=== PATIENT | female | born 1985 | race Asian ===

== ENCOUNTER 2017-07-16 14:07 | Observation (INO) | payer OTHER ==
[~2017-07-16] VITALS: Ht 170.2 cm; Wt 64.1 kg
[2017-07-16 18:27] VITALS: BP 104/65; TEMP 98; Ht 170.2 cm; Wt 64.1 kg
[2017-07-16 19:12] LABS: PLATELET COUNT 180 K/uL (152-353)
[2017-07-16 19:24] LABS: POTASSIUM 3.5 mmol/L (3.6-5.2); SODIUM 137 mmol/L (136-145)
[2017-07-16 20:00] VITALS: BP 116/65; TEMP 98.3
[2017-07-17] VITALS: BP 114/63; TEMP 98.6
[2017-07-17 04:00] VITALS: BP 108/50; TEMP 98.5
[2017-07-17 05:43] LABS: PLATELET COUNT 147 K/uL (152-353)
[2017-07-17 06:04] LABS: POTASSIUM 3.6 mmol/L (3.6-5.2); SODIUM 141 mmol/L (136-145)
[2017-07-17 08:00] VITALS: BP 102/65; TEMP 98.3
[2017-07-17 11:53] VITALS: BP 97/63; TEMP 98.2
[2017-07-17 20:29] VITALS: BP 116/71; TEMP 98.4
[2017-07-18] VITALS: BP 107/65; TEMP 98.4
[2017-07-18 04:00] VITALS: BP 97/52; TEMP 99.1
[2017-07-18 05:18] LABS: PLATELET COUNT 163 K/uL (152-353)
[2017-07-18 05:54] LABS: POTASSIUM 3.8 mmol/L (3.6-5.2); SODIUM 138 mmol/L (136-145)
[2017-07-18 08:00] VITALS: BP 99/54; TEMP 98.7
[2017-07-18 12:00] VITALS: BP 98/54; TEMP 98.7
[2017-07-18 16:00] VITALS: BP 101/64; TEMP 98.4
[2017-07-18 20:00] VITALS: BP 116/62; TEMP 98.7
== END 2017-07-18 22:40 | disposition home or self-care (01) ==
LOC: CT 14:07 → MED/SURG 17:31
PROVIDERS: ADMIT Family Medicine
PROC: 0UPD4HZ Removal of Contraceptive Device from Uterus and Cervix, Percutaneous Endoscopic Approach (ICD-10-PCS; principal; 2017-07-17)
DX: T83.32XA Displacement of intrauterine contraceptive device, initial encounter (principal); K59.09 Other constipation; R10.11 Right upper quadrant pain; R10.13 Epigastric pain; R10.32 Left lower quadrant pain; N83.299 Other ovarian cyst, unspecified side; R87.610 Atypical squamous cells of undetermined significance on cytologic smear of cervix (ASC-US)
CPT/HCPCS: 36415; 80053; 81000; 83605; 83735; 84702; 85027; 87040; 87490; 87590; 96365; 96366; 96367; 96374; 96375; 99220; G0378; G0379; J0132; J1170; J1885; J2175; J2543; J2765; J3010; J3490; Q9963; S0028

== ENCOUNTER 2018-05-30 10:47 | Emergency (ER) | payer OTHER ==
[~2018-05-30] VITALS: Ht 170.2 cm; Wt 70.3 kg
[2018-05-30 11:07] VITALS: TEMP 98.1
[2018-05-30 14:50] VITALS: BP 112/68
== END 2018-05-30 14:50 | disposition home or self-care (01) ==
LOC: EDBD 10:47 → ED 10:47
DX: G43.909 Migraine, unspecified, not intractable, without status migrainosus (principal)
CPT/HCPCS: 96372; 99283; J2175

== ENCOUNTER 2019-04-08 11:47 | Outpatient (CLI) | payer OTHER ==
[2019-04-08 12:32] LABS: POTASSIUM 3.9 mmol/L (3.6-5.2)
== END 2019-04-08 23:54 | disposition home or self-care (01) ==
LOC: RAD 11:47
PROVIDERS: Nurse Practitioner Family
DX: R05 Cough (principal); J20.8 Acute bronchitis due to other specified organisms
CPT/HCPCS: 36415; 80053; 85379

== ENCOUNTER 2019-04-09 10:15 | Outpatient (CLI) | payer OTHER | END 2019-04-09 23:44 | disposition home or self-care (01) | LOC: RAD 10:15 → CT 10:15 | DX: R79.1 Abnormal coagulation profile (principal) | CPT/HCPCS: Q9963 ==

== ENCOUNTER 2019-07-04 16:33 | Emergency (ER) | payer OTHER ==
[~2019-07-04] VITALS: Ht 170.2 cm; Wt 70.3 kg
[2019-07-04 17:39] LABS: PLATELET COUNT 188 K/uL (152-353)
[2019-07-04 17:48] LABS: POTASSIUM 3.7 mmol/L (3.6-5.2); SODIUM 145 mmol/L (136-145)
[2019-07-04 19:44] LABS: PARTIAL THROMBOPLASTIN TIME 20.6 SECONDS (24.5-33.6)
[2019-07-04 20:50] VITALS: BP 133/76; TEMP 98.9
== END 2019-07-04 20:50 | disposition home or self-care (01) ==
LOC: ED 16:33
PROVIDERS: Hospitalist
DX: J40 Bronchitis, not specified as acute or chronic (principal)
CPT/HCPCS: 36415; 36600; 80053; 80307; 80320; 81000; 81025; 82550; 82553; 82805; 83605; 83880; 84484; 85027; 85379; 85610; 85730; 87040; 93005; 94664; 96360; 96361; 96375; 99284; J1885; J2405; J2930; Q9963

== ENCOUNTER 2019-09-13 08:27 | Outpatient (CLI) | payer OTHER | END 2019-09-13 19:13 | disposition home or self-care (01) | LOC: CT 08:27 | DX: J42 Unspecified chronic bronchitis (principal) | CPT/HCPCS: Q9963 ==

== ENCOUNTER 2019-10-14 19:06 | Outpatient (CLI) | payer OTHER | END 2019-10-14 19:41 | disposition home or self-care (01) | LOC: LAB 19:06 | DX: R00.2 Palpitations (principal) | CPT/HCPCS: 82550; 84484 ==

== ENCOUNTER 2019-12-07 17:29 | Outpatient (CLI) | payer OTHER | END 2019-12-07 19:10 | disposition home or self-care (01) | LOC: LAB 17:29 | DX: R00.2 Palpitations (principal) | CPT/HCPCS: 82550; 83880; 84484; 85379 ==

== ENCOUNTER 2020-08-07 11:28 | Outpatient (CLI) | payer OTHER | END 2020-08-07 19:45 | disposition home or self-care (01) | LOC: US 11:28 | PROVIDERS: ATTEND Nurse Practitioner Family | DX: N93.9 Abnormal uterine and vaginal bleeding, unspecified (principal) ==

== ENCOUNTER 2021-02-06 17:27 | Outpatient (CLI) | payer OTHER | END 2021-02-06 22:47 | disposition home or self-care (01) | LOC: RAD 17:27 | PROVIDERS: ATTEND Nurse Practitioner Family | DX: R07.89 Other chest pain (principal) ==

== ENCOUNTER 2021-02-08 15:40 | Outpatient (CLI) | payer OTHER ==
[2021-02-08 16:20] LABS: POTASSIUM 3.5 mmol/L (3.6-5.2); SODIUM 141 mmol/L (136-145)
== END 2021-02-08 22:52 | disposition home or self-care (01) ==
LOC: LABW 15:40
PROVIDERS: ATTEND Nurse Practitioner Family
DX: R07.89 Other chest pain (principal); M54.6 Pain in thoracic spine
CPT/HCPCS: 36415; 80053; 82150; 82550; 82553; 83690; 84484; 85379

== ENCOUNTER 2021-02-08 17:13 | Observation (INO) | payer OTHER ==
[~2021-02-08] VITALS: Ht 170.2 cm; Wt 73.6 kg
[2021-02-08 17:20] VITALS: BP 118/71; TEMP 99.1
[2021-02-08 17:52] LABS: PLATELET COUNT 191 K/uL (152-353)
[2021-02-08 18:07] LABS: PARTIAL THROMBOPLASTIN TIME 21.4 SECONDS (24.5-33.6)
[2021-02-08 22:02] VITALS: BP 113/73; TEMP 98.4; Ht 170.2 cm; Wt 73.6 kg
[2021-02-08 23:53] VITALS: BP 109/58; TEMP 98.2
--- NOTE | 2021-02-09 02:40 | NUR ---
02/08/215: RECEIVED PT FROM ER BY WHEELCHAIR TO ROOM 1111. PT ALERT ORIENTATED X4. PT STATED CHEST PAIN WAS A 1 ON PAIN SCALE BUT HER BACK PAIN WAS A 7 ON PAIN SCALE. ORIENTED PT TO THE ENVIRONMENT.
[2021-02-09 03:53] VITALS: BP 95/62; TEMP 98.2
[2021-02-09 04:53] LABS: PLATELET COUNT 177 K/uL (152-353)
[2021-02-09 05:03] LABS: POTASSIUM 3.4 mmol/L (3.6-5.2)
[2021-02-09 08:00] VITALS: BP 99/53; TEMP 98.4
--- NOTE | 2021-02-09 09:44 | NUR ---
EKG COMPLETED AND PLACED ON PTS CHART.
--- NOTE | 2021-02-09 09:52 | NUR ---
CALLED DR TRAN AND LAB RESULTS REPORTED VIA PHONE. NEW ORDERS REC'D TO OBTAIN ECHO AND POTASSIUM 40 MEQ PO NOW.
--- NOTE | 2021-02-09 11:11 | NUR ---
02/09/21 1100 RESP IN WITH PATIIENT TO DO ECHOCARDIGRAM.CALL LIGHT WITHIN REACH.CC
[2021-02-09 12:00] VITALS: BP 100/58; TEMP 98.6
[2021-02-09 16:00] VITALS: BP 101/56; TEMP 98.6
--- NOTE | 2021-02-09 16:00 | NUR ---
02/09/2021 1515 HERE TO DISCUSS PLAN OF CARE WITH PATIENT.[facility] THERAPY [facility] NOTIFED OF REFERRAL FROM DR. TRAN TO EVALUATE AND TREAT PT ON OUTPATIENT BASICS.[facility] STATED SHE WILL CONTACT PATIENT ON FRIDAY WELL NOTIFY TO LET HER KNOW.DR. TRAN HERE AT PRESENT TOLD HER WHAT [facility] SAID WILL CALL PT ON FRIDAY.ORDER AND FACE SHEET FAXED TO [facility].CC 02/09/2021 RESP 1608 STATED TO WALK PT WITH OXYGEN SENSOR ON FINGER ALSO TELE IS ON.PT WALKED TOTAL OF 5-6 MINUTES NO C/O PAIN IN CHEST OR NO SHORTNESS OF BREATH NOTED PER RESP.PT C/O OF STIFFNESS AND WEAKNESS TO LOWER EXTREMITES.OXYGEN REMAINED 100 PERCENT HR 80-90.NO EPISODES NOTED ON TELE.TELE STRIP PRINTED AFTER 5 MINUTE WALK.PT TOOK BACK TO ROOM RESP EVALUATED RESP EVEN SLIGHT LABORED 28 AFTER WALKING FOR 6 MINUTES NO DISTRESS NOTED.LUNG SOUNDS CLEAR.CC 02/09/[address] TRAN NOTIFIED OF PT EVALUATION PER RESP.NO NEW ORDERS MAY DISCHARGE HOME.PT WILL F/U 1 WEEK.ALSO WILL HAVE PHYSICAL THERAPY OUTPATIENT.CC 02/09/2021 1640 SL REMOVED APPLIED 2X2 SECURED WITH TAPE.CC
--- NOTE | 2021-02-09 16:40 | NUR ---
1608- RT AND RN TO COMPLETE A WALK TEST TO EVALUTE PT FOR CHANGES IN HR AND RESPIRATORY STATUS. PT WALKED FOR APPROX 6 MINS. SPO2 MAINTAINED AT 99-100%. HR BETWEEN MID 80S TO LOW 90S. NO PT C/O OF SOB OR CP, ONLY STIFFNESS AND "FEELS LIKE A CRAMP IS COMING ON" IN LEGS PER PT. POST WALK, BBS CLEAR. ONLY A SLIGHT INCREASED WOB WITH RR AT 28. PT STILL HAS NO C/O OF SOB OR CP.
--- NOTE | 2021-02-09 17:23 | NUR ---
02/09/2021 1716 DISCHARGE INSTRUCTIONS GIVEN AND SIGNED.PT TOOK OUT VIA WHEELCAHIR TO PRIVATE VECHICLE ACCOMPAINED PER FAMILY.CC
== END 2021-02-09 22:39 | disposition home or self-care (01) ==
LOC: ED 17:13 → MED/SURG 20:00
PROVIDERS: ADMIT Hospitalist; ATTEND Family Medicine
DX: R07.89 Other chest pain (principal); K21.9 Gastro-esophageal reflux disease without esophagitis; R06.02 Shortness of breath; M79.89 Other specified soft tissue disorders
CPT/HCPCS: 36415; 80053; 82550; 83735; 84100; 84484; 85027; 85610; 85730; 87635; 93005; 94640; 94664; 94760; 96372; 99220; 99284; G0378; J1650; Q9963; U0003

== ENCOUNTER 2021-03-07 08:34 | Outpatient (CLI) | payer OTHER | END 2021-03-07 22:09 | disposition home or self-care (01) | LOC: NM 08:34 | PROVIDERS: ATTEND Nurse Practitioner Family | DX: R07.89 Other chest pain (principal); R06.02 Shortness of breath; R53.83 Other fatigue | CPT/HCPCS: A9500 ==

== ENCOUNTER 2021-03-19 10:41 | Outpatient (CLI) | payer OTHER | END 2021-03-19 19:31 | disposition home or self-care (01) | LOC: RAD 10:41 | PROVIDERS: ATTEND Nurse Practitioner Family | DX: M54.12 Radiculopathy, cervical region (principal) ==

== ENCOUNTER 2021-08-22 15:19 | Outpatient (CLI) | payer OTHER | END 2021-08-22 19:47 | disposition home or self-care (01) | LOC: US 15:19 | PROVIDERS: ATTEND Nurse Practitioner Family | DX: R10.32 Left lower quadrant pain (principal) ==

== ENCOUNTER 2021-09-05 13:26 | Outpatient (CLI) | payer OTHER | END 2021-09-05 20:03 | disposition home or self-care (01) | LOC: CT 13:26 | PROVIDERS: ATTEND Nurse Practitioner Family | DX: R74.8 Abnormal levels of other serum enzymes (principal) | CPT/HCPCS: Q9963 ==

== ENCOUNTER 2023-03-17 13:09 | Outpatient (CLI) | payer OTHER | END 2023-03-17 19:12 | disposition home or self-care (01) | LOC: RAD 13:09 | PROVIDERS: ATTEND Nurse Practitioner Family | DX: R05.9 Cough, unspecified (principal) ==